=== PATIENT | female | born 1955 | race Caucasian/White ===

== ENCOUNTER 2019-11-03 05:39 | Inpatient (IN) | payer MEDICARE ==
[2019-10-30 15:00] LABS: BASOPHILS # (AUTO) 0.1 (0.0-0.1); BASOPHILS % 1.7 % (0.0-1.0); EOSINOPHILS # (AUTO) 0.4 (0.0-0.4); EOSINOPHILS % 6.1 % (0.0-6.0); HEMATOCRIT 42.8 % (34.2-44.1); HEMOGLOBIN 14.1 g/dL (12.0-16.0); LYMPHOCYTES # (AUTO) 2.3 (1.0-3.2); LYMPHOCYTES % 35.9 % (18.0-39.1); MEAN CORPUSCULAR HEMOGLOBIN 30.5 pg (28-32); MEAN CORPUSCULAR HGB CONC 32.9 g/dL (31-35); MEAN CORPUSCULAR VOLUME 92.6 fL (81-99); MONOCYTES # (AUTO) 0.5 (0.2-0.8); MONOCYTES % 8.2 % (4.4-11.3); NEUTROPHILS % 47.9 % (38.7-80.0); PLATELET COUNT 247 x10e3/uL (140-360); RED BLOOD COUNT 4.62 x10e6/uL (3.6-5.1); RED CELL DISTRIBUTION WIDTH 13.1 % (11.7-14.4)
--- NOTE | 2019-10-30 15:15 | Diagnostic Imaging Report ---
EXAMINATION: CHEST 2 VIEWS INDICATION: Pre-operative COMPARISON: None FINDINGS: LINES/TUBES:None LUNGS:The lungs are hyperinflated. No focal consolidation or pulmonary edema. 6 mm right lower lobe pulmonary nodule. PLEURA:No pleural effusion or pneumothorax. MEDIASTINUM:The cardiomediastinal silhouette appears normal in size and shape. BONES/SOFT TISSUES:No acute osseous injury. ABDOMEN:No free air under the diaphragm. IMPRESSION: No focal pneumonia or pulmonary edema. 6 mm medial right lower lobe pulmonary nodule. Recommend nonurgent chest CT for further evaluation. Signed by: Kait Bolden MD on 10/30/2019 3:13 PM
[2019-10-30 16:18] LABS: ALANINE AMINOTRANSFERASE 14 IU/L (0-55); ALBUMIN 3.8 g/dL (3.5-5.0); ALBUMIN/GLOBULIN RATIO 1.4 (0.8-2.0); ALKALINE PHOSPHATASE 75 IU/L (40-150); BLOOD UREA NITROGEN 9 mg/dL (7-26); BUN/CREATININE RATIO 13 (6-25); CALCIUM 9.8 mg/dL (8.4-10.2); CARBON DIOXIDE 28 mmol/L (22-29); CHLORIDE 104 mmol/L (98-107); EST GLOMERULAR FILTRATION RATE > 60 ML/MIN (60-); GLUCOSE 87 mg/dL (74-118); SODIUM 141 mmol/L (136-145)
[~2019-11-03 05:39] MED LIST: MULTI-VITAMIN1 EACH PO; VESICARE5 MG PO
--- OUTSIDE RECORDS SUMMARY | 2019-11-03 05:41 | XMS REPORT ---
Author Author [facility] Address Unknown Phone Unavailable Care Team Providers [facility] Interpreter Name Role Phone TRUE DOMINGUEZ Unavailable Unavailable Problems This patient has no known problems. Allergies, Adverse Reactions, Alerts This patient has no known allergies or adverse reactions. Medications This patient has no known medications. Results Test Description Test Time Test Comments Text Results Atomic Results Result Comments CHEST 2 VIEWS 2019-10-30 15:12:00 [facility] [address] [address] Patient Name: LEATHA KEENAN MR #: [id number] : 1955 Age/Sex: 64/F Req #: [id number] [facility] Physician: Ordered by: TRUE DOMINGUEZ MD Report #: [id number] Location: OR Room/Bed: Procedure: [id number] DX/CHEST 2 VIEWS Exam Date: 10/30/19 Exam Time: 1420 REPORT STATUS: Signed EXAMINATION: CHEST 2 VIEWS INDICATION: Pre-operative COMPARISON: None FINDINGS: LINES/TUBES:None LUNGS:The lungs are hyperinflated. No focal consolidation or pulmonary edema. 6 mm right lower lobe pulmonary nodule. PLEURA:No pleural effusion or pneumothorax. MEDIASTINUM:The cardiomediastinal silhouette appears normal in size and shape. BONES/SOFT TISSUES:No acute osseous injury. ABDOMEN:No free air under the diaphragm. IMPRESSION: No focal pneumonia or pulmonary edema. 6 mm medial right lower lobe pulmonary nodule. Recommend nonurgent chest CT for further evaluation. Signed by: Ann Bolden MD on 10/30/2019 3:13 PM Dictated By: ANN BOLDEN MD [id number] Transcribed By: JAY on 10/30/19 1513 COPY TO: TRUE DOMINGUEZ MD
[2019-11-03] MEDS ORDERED: CEFAZOLIN SOD 1 GM/NS 50ML 100 ML IV ONE (06:04)
[2019-11-03] MEDS ORDERED: BUPIVACAINE 0.25% 30ML SDV INJ ONE (07:30)
[2019-11-03] MEDS ORDERED: DIPHENHYDRAMINE HCL 25 MG CAP PO PRN (08:00)
[2019-11-03] MEDS ORDERED: ONDANSETRON HCL INJ 2MG/ML 2ML 2 MG/ML VIAL IV PRN (08:00)
[2019-11-03] MEDS ORDERED: ESTROGENS CONJUGATED VAGINAL CR 45 GM TUBE PV ONE ×2 (08:48→09:59)
--- NOTE | 2019-11-03 09:47 | Diagnostic Imaging Report ---
EXAMINATION: PELVIS AP 1-2 VIEWS INDICATION: Intraoperative COMPARISON: None FINDINGS: Intraoperative pelvic radiograph demonstrates a radiopaque surgical sponge in the pelvis. No acute osseous injury. Alignment appears anatomic. Nonobstructive bowel gas pattern. IMPRESSION: Surgical sponge in the pelvis. Signed by: Kait Bolden MD on 11/03/2019 9:45 AM
--- NOTE | 2019-11-03 13:23 | NUR ---
Patient arrived to the floor from PACU. She is awake alert and oriented x . She was able to transfer herself from stretcher to bed. She has a stanley catheter with hematuria. She has vaginal packing that is bloody. Will continue to monitor. She is s/p total vag hysterectomy. Oriented the patient on how to use the call light and explained to call for assistance when getting out of bed. She verbalized understanding.
[2019-11-03 13:30] VITALS: BP 144/65
[2019-11-03] MEDS: KETOROLAC TROMETHAMINE 30 MG/ML VIAL IV SCH ×2 (14:11→20:20)
[2019-11-03] MEDS: LACTATED RINGER'S 1,000 ML IV SCH ×2 (14:11→16:00)
[2019-11-03 14:24] VITALS: BP 156/77
[2019-11-03] MEDS: HYDROCODONE/APAP 5MG-325MG TAB PO PRN (15:35)
--- NOTE | 2019-11-03 16:50 | Operative Report ---
DATE OF PROCEDURE: 11/03/2019 SURGEON: Lydia Garcia MD PREOPERATIVE DIAGNOSES: Pelvic organ prolapse and urinary incontinence. POSTOPERATIVE DIAGNOSES: Pelvic organ prolapse and urinary incontinence. PROCEDURES: Vaginal hysterectomy, anterior-posterior repair, sacrospinous colpopexy. COMPLICATIONS: None. ESTIMATED BLOOD LOSS: 80 mL. DESCRIPTION OF PROCEDURE: The patient was taken to the OR. General anesthesia was induced. She was prepped and draped in a normal sterile fashion, placed in dorsal lithotomy position. After examination, under anesthesia, a weighted speculum was placed inside the vagina and subvaginal tissue was injected around the cervix using Marcaine 0.25%. A circumferential vaginal skin incision was made at the level of the bladder line around the cervix and the bladder was dissected off from the cervix using both sharp and blunt dissection with a Ray-Catalino wrapped on the index finger. Following this, pouch of Abraham was opened with Metzenbaum scissors and a weighted speculum was advanced in the pouch of Abraham. Following this, using the LigaSure the uterosacral ligaments were ligated and cut, then uterine vessels were ligated and cut, and the apex of the broad ligament was clamped with the LigaSure, cauterized and cut. The same was repeated on the other side. Uterus was freed and sent to pathology. Following this, the anterior wall of the vagina was held with two Allis clamps and the vagina was dissected off the bed using the push spread technique with the Metzenbaum scissors, and the vagina was opened in the midline using the same instruments. Two flaps of vagina were dissected off the bladder using both sharp and blunt dissection. Following this, using the index finger the pelvic fascia was pierced at the level of the pubic ramus. Ischial spine was felt and sacrospinous ligament was palpated and sacral spinous Vicryl suture was placed using the Capio needle sommers. The same was repeated on the other side of the pelvis. The other end of the Capio suture was hitched to the vaginal vault. Following this, the pubocervical ligaments on each side was approximated using Vicryl 2-0 stitch. Excess vaginal skin was trimmed off using curved Pond scissors and the vagina was closed with interlocking stitches of Vicryl 0. Following this, the sacrospinous sutures were tied and the vaginal vault was lifted. Following this procedure, vaginal wall was injected with Marcaine 0.25% about 10 mL and the mucocutaneous junction between the two Allis clamp, 1 cm from the fourchette was excised using curved Pond scissors. The vagina was dissected off the perineum and rectum using both push spread technique with the Metzenbaum scissors, and the vagina was opened posteriorly in the midline using the same instrument. Two flaps of the vagina dissected off the rectum using both sharp and blunt dissection. A pop-off Vicryl 0 stitch was applied on the levator ani and two sutures were used and approximated tight. Excess vaginal skin was excised using curved Pond scissors. The vagina was closed with interlocking suture of Vicryl 0. The rectum was palpated at the end of procedure and found to be intact. The perineal muscle was approximated using Vicryl 2-0 and skin was closed with Vicryl 2-0. Subcu vaginal pack and Melendez catheter were placed inside the bladder for drainage. At the end of the procedure, the Ray-Catalino count was incorrect and accordingly x-ray was ordered in the OR. The patient tolerated the procedure well and after confirming the count, the patient was sent to the recovery room in stable. Lydia Garcia MD DD/DESTINI /[id number]
[2019-11-03 17:00] VITALS: BP 142/74
[2019-11-03] MEDS ORDERED: FENTANYL CITRATE/PF 100MCG/2 ML INJ ONE (17:11)
--- NOTE | 2019-11-03 17:30 | NUR ---
Dr. Garcia called to check on patient and inquired about the hematuria in the stanley that the patient was having post operatively. I explained that the patient came from recovery with hematuria and continues to have hematuria that is not clearing up. Prob about 500ml. New orders received. Will get retrograde cystogram and HH. Call Dr. Garcia with results.
[2019-11-03] MEDS ORDERED: SODIUM CHLORIDE 0.9% 500ML 500 ML ONE (17:54)
[2019-11-03] MEDS ORDERED: PROPOFOL IV EMULSION 10 MG/ML 20 ML VIAL ONE (18:15)
[2019-11-03] MEDS ORDERED: ACETAMINOPHEN 1000 MG/100 ML IV ONE (18:15)
[2019-11-03] MEDS ORDERED: DEXAMETHASONE SOD PHOS INJ 4 MG/ML VIAL ONE (18:15)
[2019-11-03] MEDS ORDERED: NEOSTIGMINE 1 MG/ML 10ML VIAL ONE (18:15)
[2019-11-03] MEDS ORDERED: SEVOFLURANE INHAL SOLN 250 ML PEN BTL ONE (18:15)
[2019-11-03] MEDS ORDERED: GLYCOPYRROLATE INJ 0.2 MG/ML VIAL ONE (18:15)
[2019-11-03] MEDS ORDERED: LIDOCAINE HCL 2% LOCAL INJ 5 ML SDV VIAL INJ ONE (18:15)
[2019-11-03] MEDS ORDERED: ROCURONIUM BROMIDE 10 MG/ML 5ML VIAL ONE (18:15)
[2019-11-03] MEDS ORDERED: ONDANSETRON HCL INJ 2MG/ML 2ML 2 MG/ML VIAL ONE (18:15)
--- NOTE | 2019-11-03 18:53 | NUR ---
Patient left the floor for cystogram
[2019-11-03 19:09] LABS: HEMATOCRIT 35.2 % (34.2-44.1); HEMOGLOBIN 11.5 g/dL (12.0-16.0)
--- NOTE | 2019-11-03 19:47 | Diagnostic Imaging Report ---
ADDENDUM #1 Dose reduction techniques used: Automated exposure control, adjustment of the mAs and/or kVp according to patient size, standardized low-dose protocol, and/or iterative reconstruction technique. Signed by: Dr. Mari Marr MD on 11/09/2019 10:[address] cystogram CPT code 17095 CLINICAL HISTORY: Hematuria, history of hysterectomy. TECHNIQUE: 5 mm images of the pelvis were obtained before and after the instillation of of 50 cc of contrast and 500 cc of saline through a Melendez catheter. COMPARISON: Abdomen x-ray 0857 hours. FINDINGS: Bladder: Unenhanced images demonstrate the presence of a Melendez catheter. There is blood layering dependently within the bladder. There is also nondependent air. There is blood in the pelvis external to the posterior bladder castro in the cul-de-sac. The intravesicular clot measures approximately 6.2 x 8.7 cm in the axial plane. There is no extravasated contrast appreciated. Uterus: Absent. Pelvis: There are multiple droplets of air extending from the bladder floor to the left of midline to the left pelvic sidewall and inferiorly to the pelvic floor. Bowel: Visualized bowel including the appendix appears normal in diameter with normal wall thickness. Visualized portions of the liver, gallbladder, pancreas, and kidneys are unremarkable. There are calcifications throughout the abdominal aorta. Bones: No focal osseous lesions. IMPRESSION: 1. Large intraluminal clot in the urinary bladder. No extravasated contrast to suggest bladder rupture. 2. Blood posterior to the bladder castro in the cul-de-sac and pelvic air extending from the posterior left bladder wall to the left pelvic sidewall and left pelvic floor. This is likely secondary to surgery. No secondary signs of bowel injury. Injury to the distal ureters cannot be entirely excluded. Signed by: Dr. Mari Marr MD on 11/03/2019 7:44 PM
[2019-11-03 20:00] VITALS: BP 125/56
--- NOTE | 2019-11-03 20:40 | NUR ---
Spoke to Dr. Garcia regarding CT and HH, no new orders received.
[2019-11-03] MEDS ORDERED: ZOLPIDEM TARTRATE 5 MG TAB PO PRN (21:00)
[2019-11-03 21:31] VITALS: BP 125/56
--- NOTE | 2019-11-03 23:36 | Operative Report ---
DATE OF PROCEDURE: 11/03/2019 SURGEON: Lydia Garcia MD ADDENDUM: Addendum to the operative report. The patient after finishing the surgery, the Ray-Catalino count was incorrect and accordingly, x-ray was performed, which showed the Ray-Catalino missing was inside the patient's pelvis above the vaginal vault. Accordingly, decision was made to re-prep the patient again and weighed speculum was placed inside the vagina. The vaginal vault was opened with Metzenbaum scissors and the tip of the Ray-Catalino was noted to help with Qian and the port outside the body. The vagina was closed with interrupted sutures of Vicryl 0. The patient tolerated the procedure well. Lap, instrument, and needle counts were correct x2 at the end of the procedure. Lydia Garcia MD DD/MODL /[id number]
[2019-11-04] VITALS (8 sets, daily range): BP systolic 112–168; BP diastolic 48–71
[2019-11-04] MEDS: LACTATED RINGER'S 1,000 ML IV SCH ×3 (00:19→16:00)
[2019-11-04] MEDS: KETOROLAC TROMETHAMINE 30 MG/ML VIAL IV SCH ×4 (03:45→18:11)
--- NOTE | 2019-11-04 03:45 | NUR ---
Stanley catheter not draining. Manually irrigated stanley with normal saline. Clots evacuated. Stanley catheter began to drain properly. Emptied 600 ml of bright red blood. HH entered for this AM.
[2019-11-04 05:19] LABS: HEMATOCRIT 27.2 % (34.2-44.1); HEMOGLOBIN 8.9 g/dL (12.0-16.0)
[2019-11-04 07:46] LABS: ANION GAP 10.9 mmol/L (8-16); BLOOD UREA NITROGEN 15 mg/dL (7-26); BUN/CREATININE RATIO 22 (6-25); CALCIUM 8.4 mg/dL (8.4-10.2); CARBON DIOXIDE 25 mmol/L (22-29); CHLORIDE 106 mmol/L (98-107); CREATININE, SERUM 0.69 mg/dL (0.57-1.11); EST GLOMERULAR FILTRATION RATE > 60 ML/MIN (60-); GLUCOSE 178 mg/dL (74-118); POTASSIUM 3.9 mmol/L (3.5-5.1); SODIUM 138 mmol/L (136-145)
[2019-11-04] MEDS ORDERED: IOPAMIDOL 300MG/ML 100 ML INFUS..BTL IV ONE (08:28)
--- NOTE | 2019-11-04 10:07 | Diagnostic Imaging Report ---
Intravenous pyelogram. History: Hematuria. Comparison: CT pelvis 11/03/2019. Technique: A bookie film was obtained. Multiple sequential images of the abdomen were obtained in the frontal and bilateral oblique projections after intravenous administration of contrast. Findings: Scrap Breaker film: The intestinal gas pattern is nonspecific with moderate retained stool. There no masses or abnormal calcifications. The osseous structures are intact. After the intravenous demonstration of contrast, there is prompt bilateral excretion of contrast. The renal collecting systems are normal and symmetric in appearance without evidence of caliceal blunting or filling defect. The ureters have normal course and caliber bilaterally and are visualized in their entire course to the bladder. The bladder contains a large amount of irregular filling defect. Post void images demonstrates moderate residual contrast within the bladder. IMPRESSION: 1. Normal appearance of the kidneys, renal collecting systems, and ureters. 2. Large irregular filling defect within the bladder consistent with clot seen on CT. Signed by: Tobias Wilkins on 11/04/2019 10:04 AM
--- NOTE | 2019-11-04 10:50 | NUR ---
Dr. Garcia called to check on patient, IVP results were given. No new orders at this time.
--- NOTE | 2019-11-04 11:05 | NUR ---
Paged Dr. Clarke regarding IVP results. Waiting supervisor electronics inspection back
--- NOTE | 2019-11-04 11:11 | NUR ---
Patient is sitting up in chair, awake and oriented x3. She continues to have hematuria, but denies needing anything and states she is otherwise feeling "ok". Her daughter is here with her and assists her as needed. Encouraged to please call staff for assistance as well. They deny needing anything else at this time. Will update patient on POC as it progresses
--- NOTE | 2019-11-04 11:24 | NUR ---
Dr. Clarke called and said he is on his way to see the patient and is planning to take her for cystoscopy and to keep patient NPO. Patient and her daughter were updated on POC at this time.
[2019-11-04] MEDS ORDERED: IOPAMIDOL 300MG/ML 50ML INFUS..BTL IV ONE (12:18)
[2019-11-04] MEDS ORDERED: B&O 60MG R/S 60 MG SUPP PR ONE (12:18)
[2019-11-04] MEDS ORDERED: ACETAMINOPHEN 1000 MG/100 ML 100 ML IV ONE (12:28)
[2019-11-04] MEDS ORDERED: IOTHALAMATE MEGLUMINE 17.20% 250 ML BTL ONE ×2 (12:30→14:18)
[2019-11-04] MEDS ORDERED: NEOSTIGMINE 1 MG/ML 10ML VIAL ONE (13:38)
[2019-11-04] MEDS ORDERED: MUPIROCIN 2% OINT 22 GM TUBE ONE (13:38)
[2019-11-04] MEDS ORDERED: FENTANYL CITRATE/PF 100MCG/2 ML INJ ONE ×2 (14:18→17:25)
--- NOTE | 2019-11-04 15:20 | NUR ---
Patient arrived back to the floor s/p cystoscopy with continuous bladder irrigation. Urine is clear, pink tinged. Patient is awake alert and oriented x3. Her daughter is present in the room. She denies needing anything at this time. Call light in reach
[2019-11-04] MEDS: LEVOFLOXACIN 500MG/D5W 100ML 100 ML IV SCH (16:49)
[2019-11-04] MEDS ORDERED: MIDAZOLAM HCL 2 MG/2 ML VIAL ONE (17:25)
[2019-11-04] MEDS ORDERED: PROPOFOL IV EMULSION 10 MG/ML 20 ML VIAL ONE (18:28)
[2019-11-04] MEDS ORDERED: GLYCOPYRROLATE INJ 0.2 MG/ML VIAL ONE (18:28)
[2019-11-04] MEDS ORDERED: EPHEDRINE SULFATE INJ 50 MG/ML VIAL ONE (18:28)
[2019-11-04] MEDS ORDERED: ONDANSETRON HCL INJ 2MG/ML 2ML 2 MG/ML VIAL ONE (18:28)
[2019-11-04] MEDS ORDERED: DEXAMETHASONE SOD PHOS INJ 4 MG/ML VIAL ONE (18:28)
[2019-11-04] MEDS ORDERED: CEFAZOLIN SOD 1 GM VIAL ONE (18:28)
[2019-11-04] MEDS ORDERED: LIDOCAINE HCL 2% LOCAL INJ 5 ML SDV VIAL INJ ONE (18:28)
[2019-11-04] MEDS ORDERED: SEVOFLURANE INHAL SOLN 250 ML PEN BTL ONE (18:28)
--- NOTE | 2019-11-04 19:25 | NUR ---
BEDSIDE SHIFT REPORT RECEIVED. PATIENT IS RESTING IN BED. RESP EVEN AND UNLABORED. NO ACUTE DISTRESS NOTED. NUGENT IN PLACE, PINK AND CLEAR URINE. EDUCATED PATIENT ABOUT FALL PRECAUTIONS. PT DENIES NEEDS AT THIS TIME. CALL LIGHT IN EASY REACH. FAMILY AT BED SIDE. BED IS LOW, WHEELS LOCKED, SIDE RALES UP X2 FOR SAFETY. CONTINUE TO MONITOR CLOSELY
[2019-11-05] VITALS (8 sets, daily range): BP systolic 120–142; BP diastolic 56–65
[2019-11-05] MEDS: LACTATED RINGER'S 1,000 ML IV SCH ×3 (00:08→15:50)
[2019-11-05] MEDS: KETOROLAC TROMETHAMINE 30 MG/ML VIAL IV SCH ×3 (00:09→12:00)
--- NOTE | 2019-11-05 00:42 | Operative Report ---
DATE OF PROCEDURE: 11/04/2019 SURGEON: Terrie Clarke MD SERVICE: Urology PREOPERATIVE DIAGNOSES: 1. Gross hematuria with clot retention in the bladder. 2. Anemia with blood loss. 3. Status post vaginal hysterectomy, sacrospinalis colpopexy and anterior-posterior repair of the vagina. POSTOPERATIVE DIAGNOSES: 1. Gross hematuria with clot retention in the bladder. 2. Anemia with blood loss. 3. Status post vaginal hysterectomy, sacrospinalis colpopexy and anterior-posterior repair of the vagina. 4. Foreign body stitch on the right side of the bladder. At least 2-1/2 unit of blood clot in the bladder. Bleeding points in the bladder. Impression of the bladder perforation on the right side. OPERATIONS PERFORMED: 1. Cystoscopy and evacuation of multiple blood clots. 2. Cystogram under fluoroscopic control. 3. Cystoscopy and left retrograde pyelograms under fluoroscopy. 4. Attempt to do right retrograde pyelogram. 5. Removal of a foreign body stitch from the right side of the bladder. 6. Fulguration of bleeding point. 7. Interpretation of x-ray, radiologist not present. 8. Supervision of fluoroscopy, radiologist not present. 9. Pelvic exam under anesthesia. WARP CLAMPER: None. ANESTHESIA: General. CLINICAL INDICATION NOTE: This is a 64-year-old patient has a gross hematuria was mentioned earlier. The patient was brought for assessment of the pathology and pending the finding. Consider additional steps. DESCRIPTION PROCEDURE AND FINDINGS: After proper level of anesthesia was achieved, the patient was placed in lithotomy position and prepped and draped in a sterile fashion. Urethra inspected is unremarkable, but demonstrate some elevation in the distal bladder with irregularity on the right side and multiple blood clots. After a tedious and long irrigation and evacuation was possible to clear all the clots from the bladder. The left UO was identified. It was not possible to identify the right UO due to the deformity of the base of the bladder. A stitch was present on the right side of the bladder. Upon pulling on it this could not be released, therefore the scissors were inserted and segment entering and leaving the bladder was excised and removed. It was noticed what appeared to be an opening in the wall of the bladder. The relation of this cannot be defined. A Bugbee electrode was inserted and any visible bleeding points were carefully coagulated. After coagulation of all the various bleeding point no significant bleeding was noticed. A 24-Malagasy [address] Melendez catheter was then inserted. Cystogram was done and again demonstrating a small leak, which appeared to be extraperitoneal and most probably extra vaginal on the right side. Following this, a vaginoscopy was done. A speculum was inserted and examination of the anterior castro of the vagina up to the surgical repair was examined and no leakage of fluids was noticed and there was some fullness. Following this, speculum was removed and pelvic exam was done under anesthesia. No masses were palpated in the adnexa and there is some fullness in the center. The patient tolerated the procedure well. B and O suppository were inserted and patient was transferred in satisfactory condition to recovery room. The Melendez catheter was connected to a slow irrigation with normal saline. MD SWETHA Reyes/DESTINI /[id number]
--- NOTE | 2019-11-05 00:47 | Consultation ---
DATE OF CONSULTATION: 11/04/2019 SERVICE: Urology. REASON FOR THE VISIT: Gross hematuria. HISTORY OF PRESENT ILLNESS: This is a 64-year-old patient who was admitted to the hospital yesterday for vaginal hysterectomy. The patient had prolapse as well. She underwent a vaginal hysterectomy and sacrospinous colpopexy and anterior and posterior vaginal repair. Following surgery, she did have a Melendez catheter in place and gross hematuria was noticed. CT scan of the bladder and cystogram revealed multiple large clots in the bladder. No extravasation was seen on that study today. Following this, an IVP was done that demonstrates a normal bilateral kidney and normal ureter without hydronephrosis. The patient developed anemia mostly off blood loss. PAST MEDICAL HISTORY: Noncontributory. She did have C-sections x2. ALLERGIES: NOT DOCUMENTED. MEDICATIONS: See MAR. REVIEW OF SYSTEMS: Twelve systems reviewed. Generally, no change in weight. No history of chest pain. No problem with hematuria in the past. No history of nephrolithiasis. PHYSICAL EXAMINATION: The patient is alert and oriented. Does not seem to be presently in acute distress. Melendez catheter demonstrates a quite bloody urine as well as some clots. Abdomen, minimal suprapubic tenderness. Chest, clear. Head is symmetric. Lower extremities move all limbs. LABORATORY DATA: Reviewed. Significant anemia of blood. Urine quite bloody. IMPRESSION: 1. Gross hematuria with clot retention in the bladder. 2. Anemia of blood loss. 3. Status post and vaginal hysterectomy and sacrospinous colpopexy and anterior and posterior repair. PLAN: Due to the gross hematuria the patient needs immediate cystoscopic examination to assess the problem of the gross bleeding. Depending on the finding, we will consider what has to be done. MD SWETHA Reyes/MODL /[id number]
[2019-11-05 05:26] LABS: HEMOGLOBIN 8.1 g/dL (12.0-16.0)
--- NOTE | 2019-11-05 16:00 | NUR ---
Urine is yellow and clear with no signs of bleeding . Bladder irrigation has been discontinued per Dr. Patton orders.
[2019-11-05] MEDS: LEVOFLOXACIN 500MG/D5W 100ML 100 ML IV SCH (17:04)
[2019-11-05] MEDS: HYDROCODONE/APAP 5MG-325MG TAB PO PRN (21:18)
[2019-11-06] VITALS: BP 102/57
[2019-11-06 04:00] VITALS: BP 120/64
--- NOTE | 2019-11-06 07:05 | NUR ---
RCD PT AT BED PT IS ALERT AND ORIENTE IV PATENT BY SALINE FLUSH BED LOW AND LOCKED CALL LIGHT IN REACH
[2019-11-06 08:00] VITALS: BP 146/72
[2019-11-06] MEDS: HYDROCODONE/APAP 5MG-325MG TAB PO PRN (08:45)
[2019-11-06 08:57] VITALS: BP 146/72
[2019-11-06] MEDS ORDERED: LEVOFLOXACIN 500 MG TAB PO SCH (09:00)
--- NOTE | 2019-11-06 09:00 | NUR ---
PAGED DR DOMINGUEZ AND NOTIFIED TEM 100.4 GOT NEW ORDERS
[2019-11-06] MEDS ORDERED: ACETAMINOPHEN 325 MG TAB PO PRN (09:30)
[2019-11-06] MEDS ORDERED: SODIUM CHLORIDE 0.9% 500ML 500 ML ONE (10:43)
[2019-11-06 11:57] VITALS: BP 121/58
--- NOTE | 2019-11-06 14:31 | Diagnostic Imaging Report ---
CT the pelvis, 11/06/2019. History: Bladder perforation. Comparison: Retrograde pyelogram 11/04/2019, CT pelvis 11/03/2019. Technique: Multidetector imaging of the pelvis was performed from the level of the iliac crests to the proximal femurs after intravesicular administration of contrast via the existing Melendez catheter. RADIATION DOSE: Total DLP: 715 mGy*cm Dose modulation, iterative reconstruction, and/or weight based adjustment of the mA/kV was utilized to reduce the radiation dose to as low as reasonably achievable. Discussion: A Melendez catheter terminates within the bladder. Air is present within the bladder anteriorly. Postcontrast administration, there is slight diffuse irregularity of the bladder wall and scattered small filling defects. The large irregular filling defect seen on the prior CT is no longer present. There is no extraluminal extravasation of contrast to correspond to the right bladder leak visualized on the recent fluoroscopic study. A small amount of free fluid is present within the posterior pelvis. Visualized bowel is unremarkable. Uterus and adnexa are not visualized. IMPRESSION: Minimal residual clot within the bladder. Mild bladder wall irregularity without evidence of leak. Signed by: Tobias Wilkins on 11/06/2019 2:29 PM
[2019-11-06] MEDS ORDERED: LEVAQUIN500 MG PO (15:54)
[2019-11-06] MEDS ORDERED: TYLENOL WITH C1 EACH PO (15:55)
[2019-11-06] MEDS ORDERED: COLACE100 MG PO (16:02)
--- NOTE | 2019-11-06 16:25 | NUR ---
PT WENT HOME IN SAFE CONDITION WITH HER DAUGHTER
--- NOTE | 2019-11-06 16:25 | NUR ---
LEG BAG (URINARY ) MEDIUM SIZE APPLIED AND ONE NUGENT BAG GIVEN
== END 2019-11-06 16:27 | disposition home or self-care (01) | DRG 742 ==
LOC: OR 05:39 → PACU V 08:03 → MED/SURG2 13:21 → OBSVTOIN 11-04 16:08
PROVIDERS: ADMIT Obstetrics & Gynecology; ATTEND Obstetrics & Gynecology
PROC: 0UT97ZZ Resection of Uterus, Via Natural or Artificial Opening (ICD-10-PCS; 2019-11-03)
PROC: 0WC Anatomical Regions, General, Extirpation (ICD-10-PCS; 2019-11-03)
PROC: 0JQC3ZZ Repair Pelvic Region Subcutaneous Tissue and Fascia, Percutaneous Approach (ICD-10-PCS; 2019-11-03)
PROC: 0JQC3ZZ Repair Pelvic Region Subcutaneous Tissue and Fascia, Percutaneous Approach (ICD-10-PCS; 2019-11-03)
PROC: 0USG7ZZ Reposition Vagina, Via Natural or Artificial Opening (ICD-10-PCS; principal; 2019-11-03 07:47)
DX: N81.89 Other female genital prolapse (principal); D62 Acute posthemorrhagic anemia; R31.0 Gross hematuria; D50.0 Iron deficiency anemia secondary to blood loss (chronic); R32 Unspecified urinary incontinence
CPT/HCPCS: 36415; 71046; 72170; 72193; 74400; 74420; 80048; 80053; 85014; 85018; 85025; 86850; 86900; 88305; 88307; 93005; C1758; G0378; J0690; J1100; J1885; J1956; J2001; J2250; J2405; J2710; J3010; J7040; J7121; Q9958; Q9967

== ENCOUNTER → 2022-12-04 | Outpatient (CLI) | payer MEDICARE ==
[~2022-12-04] MED LIST changes: +COLACE100 MG PO; +LEVAQUIN500 MG PO; +TYLENOL WITH C1 EACH PO
== END ==
LOC: RAD 13:41
PROVIDERS: ATTEND Family Medicine
DX: J44.9 Chronic obstructive pulmonary disease, unspecified (principal)
CPT/HCPCS: 71046